=== PATIENT | male | born 1965 | race Caucasian/White ===

== ENCOUNTER 2020-09-24 14:02 | Outpatient (REF) | payer OTHER, SELFPAY ==
--- NOTE | ~2020-09-24 | XR_ITS ---
EXAMINATION: XR FOOT, RIGHT CLINICAL INFORMATION: Pain COMPARISON: None TECHNIQUE: AP, lateral, and oblique views of the right foot. FINDINGS: Bone alignment is normal. No fracture or dislocation is seen. Joint spaces are normal. There is a small calcaneal spur at the Achilles tendon insertion. Soft tissues are otherwise normal. XR/XR foot RT min 3V IMPRESSION: Small calcaneal spur otherwise unremarkable exam.
== END 2020-09-24 14:03 | disposition home or self-care (01) ==
LOC: HO.HMGCX 14:02
PROVIDERS: PCP Internal Medicine; Visit Provider Internal Medicine
DX: M79.671 Pain in right foot (principal); M77.31 Calcaneal spur, right foot
CPT/HCPCS: 73630

== ENCOUNTER → 2020-11-04 07:15 | Outpatient (REF) | payer OTHER, SELFPAY ==
--- NOTE | 2020-11-04 07:30 | CA_ITS ---
Transthoracic Echocardiogram Patient (Last, First, Middle): Yeyo Chandler, Gender: Male Date of : 1965 Age: 55 Procedure Date: 11/04/2020 Procedure Type: Transthoracic Echocardiogram Location: OP Height: 182.88 cm Weight: 88.45 kg BSA: 2.11 m2 Heart Rate: bpm BP: 134 / 78 mmHg Settlement Technician: INDER Referring MD: Robert Valdez MD Symptoms: HTN , LVH ON EKG Study Quality: Good ECG Rhythm: Sinus Conclusions: - The left ventricular systolic function is normal. The visually estimated ejection fraction is between 60-65%. - There is mildly increased left ventricular wall thickness. - No obvious valvular pathology seen on this study. Findings Left Ventricle Normal left ventricular cavity size. There is mildly increased left ventricular wall thickness. The left ventricular systolic function is normal. The visually estimated ejection fraction is between 60-65%. There is no evidence of regional wall motion abnormalities. Diastolic function is normal for age. Right Ventricle Normal right ventricular cavity size and systolic function. Atria Both atria are normal in size. Aortic Valve There is a normal trileaflet aortic valve. There is no aortic valve stenosis. There is trace (trivial) aortic valve regurgitation. Mitral Valve The mitral valve appears normal. There is no mitral valve regurgitation. There is no mitral valve stenosis. Pulmonic Valve The pulmonic valve was not well visualized. Tricuspid Valve Normal tricuspid valve structure. There is trace tricuspid valve regurgitation. The pulmonary artery systolic pressure is normal. Great Vessels The aortic annulus, sinuses of valsalva, and asc aorta are normal in size. Venous The inferior vena cava is normal in size and collapses greater than 50% with inspiration. Pericardium/Pleural There is no evidence of pericardial effusion. Prior Study Comparison No prior study available for comparison. Recommendations, Care & Conclusions No obvious valvular pathology seen on this study. Measurements 2D Linear Measurements IVSd: 1.12 0.6-0.9/0.6-1.0 cm LVIDd: 4.55 3.9-5.3/4.2-5.9 cm LVIDd Index: 2.16 2.4-3.2/2.2-3.1 cm/m2 LVIDs: 2.78 2.0-3.6 cm LVPWd: 1.14 0.7-1.1 cm Ao Root: 3.80 2.1-3.5 cm LA Diam: 4.20 2.7-3.8/3.0-4.0 cm LAIDs Index: 1.99 1.5-2.3 cm/m2 LV Mass: 230.49 67-162/88-224 g LV Mass Index: 109.24 43-95/49-115 g/m2 LVOT Diam: 2.10 3.0+(-)1.3 cm 2D Systolic Function EF 4C: 58.40 >55% EF 2C: 67.10 >55% EF BiP: 61.40 >55% Mitral Valve MV Pk E: 0.58 MV PK A: 0.54 MV Decel Time: 303.00 E/A: 1.10 E'Lateral: 10.90 E'Medial: 5.98 E/E' Med: 9.60 E/E' Lat: 5.30 PHT: 89.00 MVA PHT: 2.47 Decel [place]: 1.90 Aortic Valve AoV Pk Luciano: 1.15 AoV Mn Luciano: 0.83 AoV VTI: 0.29 AoV Pk Grad: 5.00 Aov Mn Grad: 3.00 MINH Cont.VTI: 2.76 LVOT LVOT Pk Luciano: 1.00 LVOT Mn Luciano: 0.68 LVOT VTI: 0.23 LVOT Pk Grad: 4.00 LVOT Mn Grad: 2.00 LVOT Diam: 2.10 LVOT Area: 3.46 Diastolic Function MV Pk E: 0.58 MV Pk A: 0.54 E/A: 1.10 E'Medial: 5.98 E/E' Med: 9.60 E' Laterial: 10.90 E/E' Lat: 5.30 Tricuspid Valve TR Pk Luciano: 1.43 TR Pk Grad: 8.00 RA Press: 3.00 RVSP: 11.00 Great Vessels Aorta Ao Root-2D: 3.80 2.0-3.7 cm Ao Asc: 3.50 2.1-3.4 cm Ao Arch: 2.80 Updated in Other Vendor System with Status of Final Ricky Lopez MD electronically signed on 11/04/2020 10:16:54 AM with status of Final
== END ==
LOC: HO.CARD 07:15
PROVIDERS: PCP Internal Medicine; Visit Provider Internal Medicine
DX: I10 Essential (primary) hypertension (principal)
CPT/HCPCS: 93306

== ENCOUNTER 2022-05-07 12:12 | Outpatient (REF) | payer BC, SELFPAY ==
[2022-05-07 13:59] LABS: MANUAL DIFF FLAG NO
[2022-05-07 14:02] LABS: Basophils Percent Auto 0.7 % (0-2); Eosinophils Absolute Auto 0.1 X10*3/uL (0.0-0.4); Eosinophils Percent Auto 1.7 % (0-4); Hemoglobin 16.6 g/dl (14.0-18.0); Imm Gran Abs Auto 0.01 X10*3/uL (0.00-0.03); Imm Gran Pct Auto 0.2 % (0.0-0.4); Lymphocytes Absolute Auto 1.3 X10*3/uL (1.2-4.9); Lymphocytes Percent Auto 32.3 % (20-40); Mean Corpuscular HGB Conc 34.6 g/dl (31.0-36.0); Mean Corpuscular Hemoglobin 29.3 pg (27.0-33.0); Mean Corpuscular Volume 84.8 fL (80.0-98.0); Mean Platelet Volume 9.9 fL (9.4-12.4); Monocytes Absolute Auto 0.4 X10*3/uL (0.1-1.2); Neutrophils Absolute Auto 2.3 x10*3/uL (2.0-8.3); Neutrophils Percent Auto 56.1 % (45-73); Platelet Count 164 X10*3/uL (160-400); Red Blood Count 5.66 X10*6/uL (4.60-5.80); Red Cell Distribution Width 12.7 % (11.0-16.0)
[2022-05-07 14:16] LABS: Alanine Aminotransferase 20 U/L (0-40); Albumin Level 4.6 g/dL (3.5-5.0); Alkaline Phosphatase 36 U/L (39-117); Anion Gap 14 (12-20); Aspartate Amino Transferase 20 U/L (5-37); Bilirubin Direct 0.5 mg/dL (0.0-0.5); Bilirubin Total 1.9 mg/dL (0.0-1.0); Blood Urea Nitrogen 17 mg/dL (9-16); Carbon Dioxide 28 mmol/L (22-29); Chloride 103 mmol/L (96-108); Cholesterol 187 mg/dL; Estimated Glomerular Filt Rate > 60; Glucose Fasting 89 mg/dL (60-99); HDL Cholesterol 42 mg/dL; LDL Cholesterol Calculated 125 mg/dl; Potassium 4.1 mmol/L (3.3-5.1); Sodium 141 mmol/L (135-145); Total Protein 7.1 g/dL (6.5-8.0); Triglycerides 104 mg/dL
[2022-05-07 14:37] LABS: Prostate Specific Antigen Scr 0.41 ng/mL (<0.05-4.0)
== END 2022-05-07 12:13 | disposition home or self-care (01) ==
LOC: HO.HMGCLDS 12:12
PROVIDERS: PCP Internal Medicine; Visit Provider Internal Medicine
DX: R53.83 Other fatigue (principal); E78.5 Hyperlipidemia, unspecified; Z12.5 Encounter for screening for malignant neoplasm of prostate
CPT/HCPCS: 36415; 80051; 80061; 80076; 82565; 82947; 84153; 84520; 85025

== ENCOUNTER 2023-05-11 16:00 | Outpatient (REF) | payer SELFPAY ==
[2023-05-11 16:20] LABS: MANUAL DIFF FLAG NO
[2023-05-11 17:10] LABS: Basophils Percent Auto 0.5 % (0-2); Eosinophils Absolute Auto 0.1 X10*3/uL (0.0-0.4); Eosinophils Percent Auto 1.1 % (0-4); Hematocrit 47.8 % (42.0-52.0); Hemoglobin 16.4 g/dl (14.0-18.0); Imm Gran Abs Auto 0.02 X10*3/uL (0.00-0.03); Imm Gran Pct Auto 0.3 % (0.0-0.4); Lymphocytes Absolute Auto 1.3 X10*3/uL (1.2-4.9); Lymphocytes Percent Auto 20.1 % (20-40); Mean Corpuscular HGB Conc 34.3 g/dl (31.0-36.0); Mean Corpuscular Hemoglobin 29.4 pg (27.0-33.0); Mean Corpuscular Volume 85.7 fL (80.0-98.0); Monocytes Absolute Auto 0.5 X10*3/uL (0.1-1.2); Monocytes Percent Auto 7.3 % (2-11); Neutrophils Absolute Auto 4.7 x10*3/uL (2.0-8.3); Neutrophils Percent Auto 70.7 % (45-73); Platelet Count 165 X10*3/uL (160-400); Red Blood Count 5.58 X10*6/uL (4.60-5.80); Red Cell Distribution Width 12.5 % (11.0-16.0); White Blood Count 6.6 X10*3/uL (4.8-10.8)
[2023-05-11 17:32] LABS: Alanine Aminotransferase 20 U/L (0-40); Albumin Level 4.6 g/dL (3.5-5.0); Alkaline Phosphatase 38 U/L (39-117); Anion Gap 12 (12-20); Aspartate Amino Transferase 22 U/L (5-37); Bilirubin Total 1.7 mg/dL (0.0-1.0); Blood Urea Nitrogen 14 mg/dL (9-16); Calcium 9.5 mg/dL (8.4-10.2); Carbon Dioxide 28 mmol/L (22-29); Chloride 105 mmol/L (96-108); Cholesterol 187 mg/dL (<200); Estimated Glomerular Filt Rate > 60; Glucose Random 81 mg/dL (60-115); HDL Cholesterol 44 mg/dL (>40); LDL Cholesterol Calculated 129 mg/dL (<100); Potassium 4.3 mmol/L (3.3-5.1); Sodium 141 mmol/L (135-145); Total Protein 7.4 g/dL (6.5-8.0); Triglycerides 71 mg/dL (<150)
[2023-05-11 17:49] LABS: Prostate Specific Antigen 0.41 ng/mL (<0.05-4.0)
== END 2023-05-11 16:01 | disposition home or self-care (01) ==
LOC: HO.LAB 16:00
PROVIDERS: PCP Internal Medicine; Visit Provider Internal Medicine
DX: R53.83 Other fatigue (principal); E78.5 Hyperlipidemia, unspecified; Z12.5 Encounter for screening for malignant neoplasm of prostate
CPT/HCPCS: 36415; 80053; 80061; 84153; 85025

== ENCOUNTER 2024-05-18 13:59 | Outpatient (REF) | payer SELFPAY ==
[2024-05-18 16:06] LABS: MANUAL DIFF FLAG NO
[2024-05-18 16:32] LABS: Basophils Percent Auto 0.8 % (0-2); Eosinophils Absolute Auto 0.1 X10*3/uL (0.0-0.4); Eosinophils Percent Auto 1.5 % (0-4); Hematocrit 44.9 % (42.0-52.0); Hemoglobin 15.4 g/dl (14.0-18.0); Imm Gran Abs Auto 0.02 X10*3/uL (0.00-0.03); Imm Gran Pct Auto 0.4 % (0.0-0.4); Lymphocytes Absolute Auto 1.2 X10*3/uL (1.2-4.9); Lymphocytes Percent Auto 24.3 % (20-40); Mean Corpuscular HGB Conc 34.3 g/dl (31.0-36.0); Mean Corpuscular Hemoglobin 29.2 pg (27.0-33.0); Mean Corpuscular Volume 85.2 fL (80.0-98.0); Mean Platelet Volume 9.9 fL (9.4-12.4); Monocytes Absolute Auto 0.4 X10*3/uL (0.1-1.2); Monocytes Percent Auto 7.5 % (2-11); Neutrophils Absolute Auto 3.2 x10*3/uL (2.0-8.3); Neutrophils Percent Auto 65.5 % (45-73); Platelet Count 168 X10*3/uL (160-400); Red Blood Count 5.27 X10*6/uL (4.60-5.80); Red Cell Distribution Width 12.9 % (11.0-16.0); White Blood Count 4.8 X10*3/uL (4.8-10.8)
[2024-05-18 17:00] LABS: Alanine Aminotransferase 21 U/L (0-40); Albumin Level 4.2 g/dL (3.5-5.0); Alkaline Phosphatase 42 U/L (39-117); Anion Gap 11 (12-20); Aspartate Amino Transferase 26 U/L (5-37); Bilirubin Total 1.7 mg/dL (0.0-1.0); Blood Urea Nitrogen 14 mg/dL (9-16); Calcium 9.6 mg/dL (8.4-10.2); Carbon Dioxide 28 mmol/L (22-29); Chloride 104 mmol/L (96-108); Cholesterol 175 mg/dL (<200); Estimated Glomerular Filt Rate > 60; Glucose Fasting 91 mg/dL (60-99); HDL Cholesterol 42 mg/dL (>40); LDL Cholesterol Calculated 113 mg/dL (<100); Potassium 4.2 mmol/L (3.3-5.1); Sodium 139 mmol/L (135-145); Total Protein 6.8 g/dL (6.5-8.0); Triglycerides 100 mg/dL (<150)
[2024-05-18 17:10] LABS: Prostate Specific Antigen 0.38 ng/mL (<0.05-4.0)
== END 2024-05-18 14:00 | disposition home or self-care (01) ==
LOC: HO.HMGCLDS 13:59
PROVIDERS: PCP Internal Medicine; Visit Provider Internal Medicine
DX: E78.5 Hyperlipidemia, unspecified (principal); R53.83 Other fatigue; C61 Malignant neoplasm of prostate; Z12.5 Encounter for screening for malignant neoplasm of prostate
CPT/HCPCS: 36415; 80053; 80061; 84153; 85025